=== PATIENT | male | born 1960 | race Caucasian/White ===

== ENCOUNTER 2017-02-14 13:59 | Emergency (ER) | payer MEDICARE ==
[~2017-02-14] VITALS: Ht 188 cm; Wt 105.0 kg
[~2017-02-14 13:59] MED LIST: EXCEDRI1 OR; XARELTO20 MG PO
[2017-02-14] MEDS ORDERED: BAYER ASPIRIN325 MG PO (14:38)
[2017-02-14] MEDS ORDERED: KEFLEX500 MG PO (15:07)
[2017-02-14] MEDS ORDERED: LORTAB 5-325 MG1 TAB PO (15:07)
[2017-02-14 15:15] VITALS: BP 130/73
== END 2017-02-14 15:20 | disposition home or self-care (01) ==
LOC: ED 13:59
PROC: 0HQFXZZ Repair Right Hand Skin, External Approach (ICD-10-PCS; principal; 2017-02-14)
DX: S62.524A Nondisplaced fracture of distal phalanx of right thumb, initial encounter for closed fracture (principal); S61.011A Laceration without foreign body of right thumb without damage to nail, initial encounter; W31.2XXA Contact with powered woodworking and forming machines, initial encounter; Y93.89 Activity, other specified; Y92.009 Unspecified place in unspecified non-institutional (private) residence as the place of occurrence of the external cause

== ENCOUNTER 2017-02-16 12:54 | Emergency (ER) | payer MEDICARE ==
[~2017-02-16] VITALS: Ht 188 cm; Wt 103.0 kg
[~2017-02-16 12:54] MED LIST changes: +BAYER ASPIRIN325 MG PO; +KEFLEX500 MG PO; +LORTAB 5-325 MG1 TAB PO
[2017-02-16 13:59] VITALS: BP 135/77
== END 2017-02-16 13:55 | disposition home or self-care (01) ==
LOC: ED 12:54
DX: S61.011D Laceration without foreign body of right thumb without damage to nail, subsequent encounter (principal); S62.524D Nondisplaced fracture of distal phalanx of right thumb, subsequent encounter for fracture with routine healing

== ENCOUNTER 2017-02-24 18:55 | Emergency (ER) | payer MEDICARE ==
[~2017-02-24] VITALS: Ht 188 cm; Wt 107.0 kg
[2017-02-24 19:16] VITALS: BP 145/87
== END 2017-02-24 19:21 | disposition home or self-care (01) ==
LOC: ED 18:55
DX: S61.011D Laceration without foreign body of right thumb without damage to nail, subsequent encounter (principal); X58.XXXD Exposure to other specified factors, subsequent encounter

== ENCOUNTER 2020-05-15 15:53 | Emergency (ER) | payer MEDICARE, MEDICAID ==
[~2020-05-15] VITALS: Ht 188 cm; Wt 101.0 kg
[2020-05-15 17:44] VITALS: BP 132/86
--- NOTE | 2020-05-18 07:56 | NUR ---
Notified patient of positive Covid results. Advised patient to quarantine until contacted by the [facility] with further instrutions. Patient denies SOB or other breatihng difficulties. Advised patient to return to ED with any difficulty breathing or other urgent needs. Patient verbalizes understanding.
== END 2020-05-15 17:52 | disposition home or self-care (01) ==
LOC: ED 15:53
DX: U07.1 COVID-19 (principal); R43.8 Other disturbances of smell and taste

== ENCOUNTER 2022-03-16 08:58 | Emergency (ER) | payer MEDICARE, MEDICAID ==
[~2022-03-16] VITALS: Ht 188 cm; Wt 113.6 kg
[2022-03-16 09:05] VITALS: BP 118/83
[2022-03-16] MEDS ORDERED: VOLTAREN1%GEL TOP (10:23)
[2022-03-16] MEDS ORDERED: MOTRIN400 MG/TAB PO (10:23)
[2022-03-16 10:36] VITALS: BP 118/83
== END 2022-03-16 10:36 | disposition home or self-care (01) ==
LOC: ED 08:58
DX: M25.512 Pain in left shoulder (principal); W18.30XA Fall on same level, unspecified, initial encounter; Y92.524 Gas station as the place of occurrence of the external cause; Z86.718 Personal history of other venous thrombosis and embolism

== ENCOUNTER 2022-08-31 17:51 | Emergency (ER) | payer MEDICARE, MEDICAID ==
[~2022-08-31] VITALS: Ht 188 cm; Wt 114.5 kg
[~2022-08-31 17:51] MED LIST changes: +MOTRIN400 MG/TAB PO; +VOLTAREN1%GEL TOP
[2022-08-31 20:35] LABS: BASO% 0.2 % (0-3); EOS% 1.4 % (0-8); HEMATOCRIT 45.2 % (39.0-50.0); HEMOGLOBIN 14.7 g/dl (14.0-18.0); IMMATURE GRANULOCYTES 0.3 % (0.0-5.0); LYMPH% 20.8 % (15-41); MEAN CELL VOLUME 96.8 fL CALC (80.0-100.0); MEAN CORPUSCULAR HGB 31.5 pG CALC (26.0-32.0); MEAN CORPUSCULAR HGB CONC 32.5 g/dL CAL (32.0-36.0); MONO% 11.8 % (2-13); NEUT# 6.75 thou/uL (1.82-7.42); NEUT% 65.5 % (42-76); RED BLOOD COUNT 4.67 mill/uL (4.70-6.10); RED CELL DISTRI WIDTH 12.7 % (11.5-15.5)
[2022-08-31 20:54] LABS: ALBUMIN 4.6 g/dL (3.2-5.0); ALKALINE PHOSPHATASE 59 u/l (38-126); ANION GAP 12 (6-22 (CALC)); BILIRUBIN, TOTAL 0.6 mg/dL (0.2-1.3); BUN 17 mg/dL (8-23); BUN/CREATININE RATIO 14 (12-20 (CALC)); C-REACTIVE PROTEIN 7.1 mg/dL (0-0.9); CHLORIDE 103 mmol/l (95-108); CREATININE 1.2 mg/dL (0.7-1.3); GFR FOR AFR.AMER. > 60 ML/MIN (>=60 (CALC)); GFR OTHER RACES > 60 ML/MIN (>=60 (CALC)); POTASSIUM 4.6 mmol/l (3.5-5.1); SGOT/AST 35 u/l (19-48); SODIUM 138 mmol/l (137-146); TOTAL PROTEIN 7.6 g/dL (6.3-8.2)
[2022-08-31 20:55] LABS: CARBON DIOXIDE 28 mmol/l (22-30)
[2022-08-31] MEDS ORDERED: NAPROXEN500 MG PO (21:04)
[2022-08-31] MEDS ORDERED: TRAMADOL HYDROC50 M1 PO (21:04)
[2022-08-31] MEDS ORDERED: KEFLEX500 MG PO (21:04)
[2022-08-31 21:56] VITALS: BP 126/79
== END 2022-08-31 22:10 | disposition home or self-care (01) ==
LOC: ED 17:51
PROVIDERS: Nurse Practitioner
DX: L03.115 Cellulitis of right lower limb (principal); Z86.718 Personal history of other venous thrombosis and embolism

== ENCOUNTER 2024-09-29 08:38 | Day surgery (SDC) | payer MEDICARE, MEDICAID ==
[~2024-09-29] VITALS: Ht 188 cm; Wt 112.0 kg
[~2024-09-29 08:38] MED LIST changes: +ASPIRIN81 MG PO; +NAPROXEN500 MG PO; +TRAMADOL HYDROC50 M1 PO
[2024-09-29] MEDS ORDERED: FAMOTIDINE 10MG/ML 2ML SDV IV ONE (08:44)
[2024-09-29] MEDS ORDERED: SODIUM CHLORIDE 0.9% 1,000 ML IV ONE (08:45)
[2024-09-29 10:35] VITALS: BP 130/71
[2024-09-29] MEDS ORDERED: PROPOFOL 200 MG/20 ML VIAL IV ONE (12:59)
[2024-09-29] MEDS ORDERED: GLYCOPYRROLATE 0.2 MG/ML IV ONE (12:59)
[2024-09-29] MEDS ORDERED: LIDOCAINE HCL 2% 2ML SDV IV ONE (12:59)
== END 2024-09-29 10:25 | disposition home or self-care (01) ==
LOC: ENDO 08:38
PROVIDERS: ATTEND Surgery
PROC: 0DJD8ZZ Inspection of Lower Intestinal Tract, Via Natural or Artificial Opening Endoscopic (ICD-10-PCS; principal; 2024-09-29)
DX: Z12.11 Encounter for screening for malignant neoplasm of colon (principal); K64.8 Other hemorrhoids; Z86.718 Personal history of other venous thrombosis and embolism
CPT/HCPCS: J1596